=== PATIENT | female | born 1980 | race Two or more races ===

== ENCOUNTER 2025-03-28 17:18 | Emergency (ER) | payer MEDICAID, SELFPAY ==
[2025-03-28 17:31] VITALS: BP 157/94; PULSE 79; RESP 18; TEMP 36.9; O2SAT 97; BMI 36.6
--- NOTE | 2025-03-28 17:41 | XR_ITS ---
Examination: PA lateral chest 2 views Technique 1 upright PA and lateral chest 2 views Date and time: March 28, 2025 1743 hours INDICATIONS: Coughing beginning one week ago. FINDINGS: Normal heart size. Lungs are clear. Osseous structures are intact IMPRESSION: No active disease
--- NOTE | 2025-03-28 17:41 | XR_ITS ---
Examination: Shoulder,right, 3 views Technique: Shoulder AP internal rotation, AP external rotation, Y view shoulder, 3 views Exam date and time :March 28, 2025 1749 hours INDICATIONS: Right shoulder pain this month. FINDINGS: Mild to moderate narrowing glenohumeral joint No fracture or shoulder dislocation No calcific tendinitis IMPRESSION: [id number] osteoarthritis glenohumeral joint
--- NOTE | 2025-03-28 17:41 | PD.EDRME ---
Rapid Medical Screening Exam E Arrival date/time: 03/28/25 17:18 45-year-old female presents to the Emergency Department for complaints of right shoulder pain, cough, congestion patient reports has been on antibiotics without relief Chief Complaint: Flu Like Symptoms Time Seen by Provider: 03/28/25 17:32 Vital signs: Vital Signs Temperature 98.5 F 03/28/25 17:31 Pulse Rate 79 03/28/25 17:31 Respiratory Rate 18 03/28/25 17:31 Blood Pressure 157/94 H 03/28/25 17:31 Pulse Oximetry (%) 97 03/28/25 17:31 Oxygen Delivery Method Room Air 03/28/25 17:31
[2025-03-28 21:59] VITALS: BP 157/91; PULSE 81; RESP 17; TEMP 36.5; O2SAT 100
--- NOTE | 2025-03-29 02:30 | PD.EDBACK ---
ED Back Injury Pain RME/HPI General Chief Complaint: Flu Like Symptoms Stated Complaint: COUGH, SOB, PAIN UPPER BACK Time Seen by Provider: 03/28/25 17:32 Arrival date/time: 03/28/25 17:18 RME / HPI RME / HPI Narrative: 03/28/25 17:18 45-year-old female presents to the Emergency Department for complaints of right shoulder pain, cough, congestion patient reports has been on antibiotics without relief DR. ARIAS?S MAIN ED EVALUATION: 52-year-old female with history of Gall Bladder Disease and Type II DM presenting to the emergency department via private auto who is presenting for chief complaint of right upper back pain and cough with phlegm. Pain is worse with deep inhalation. Patient denies leg swelling, history of smoking, or any other associated symptoms or medical complaints. - PMH: Gall Bladder Disease, Type II DM - PSH: Section - Social history: Denies - Current medications: Reviewed PCP is Clarisse Camejo MD MD Complaint: back pain Location: thoracic spine Exacerbating factors: deep breaths/cough Treatments prior to arrival: other medications (Z-Shawn) Related Data Home Medications ?Medication ?Instructions ?Recorded ?Confirmed metformin 1,000 mg tablet 1,000 mg PO BID 08/07/19 11/09/19 vits [id number] fum 1 tab PO QDAY 08/07/19 11/09/19 27 mg iron-folic acid 800 mcg tablet ( Vitamin) insulin glargine 100 unit/mL 30 unit subcut HS 09/19/19 11/09/19 subcutaneous solution (Lantus U-100 Insulin) insulin regular human 100 unit/mL 10 unit subcut HS 09/19/19 11/09/19 injection solution (Humulin R Regular U-100 Insulin) Previous Rx's ?Medication ?Instructions ?Recorded ciprofloxacin HCl 500 mg tablet 500 mg PO BID #14 tabs 02/16/22 (Cipro) sulfamethoxazole 800 1 tab PO BID #20 tabs 03/13/24 mg-trimethoprim 160 mg tablet (Bactrim DS) Allergies Allergy/AdvReac Type Severity Reaction Status Date / Time Penicillins Allergy Severe SWELLING Verified 03/28/25 17:22 Review of Systems Review of Systems Systems Reviewed: All systems reviewed, normal except as documented Respiratory Respiratory: Reports cough (with phlegm) Musculoskeletal Musculoskeletal: Reports other (BLL swelling, Right upper back pain.) Past Medical History Past Medical History GASTROINTESTINAL: Positive Gastrointestinal Disorders and Gall Bladder Disease REPRODUCTIVE: Positive Previous Pregnancies ENDOCRINE: Positive Endocrine Disorders and Diabetes Mellitus Type 2 OTHER HISTORY: Positive Hospitalization Family History FAMILY HISTORY: Positive Family Cardiac Disorders Surgical History SURGICAL: Positive Section Social History SMOKING STATUS: Never smoker Course Quality Measures none Orders Category Date Time Status Bedside COVID-19 Antigen Test NOW Care 03/28/25 17:41 Completed Bedside Influenza A&B Antigen Test NOW Care 03/28/25 17:41 Completed XR chest 2V Stat Exams 03/28/25 17:41 Completed XR shoulder RT min 2V Stat Exams 03/28/25 17:41 Completed D-Dimer Stat Lab 03/29/25 02:45 Completed PT [Prothrombin Time with INR] Stat Lab 03/29/25 02:45 Completed PTT [Partial Thromboplastin Time] Stat Lab 03/29/25 02:45 Completed Albuterol/Ipratr Rt Brittny [Duoneb Rt Brittny] Med 03/29/25 02:32 Discontinued 3 ml INH X1 ONE Ketorolac Inj [Toradol Inj] Med 03/29/25 03:27 Discontinued 15 mg IM X1 ONE Vital Signs Vital signs: Vital Signs Temperature 98.5 F 03/28/25 17:31 Pulse Rate 79 03/28/25 17:31 Respiratory Rate 18 03/28/25 17:31 Blood Pressure 157/94 H 03/28/25 17:31 Pulse Oximetry (%) 97 03/28/25 17:31 Oxygen Delivery Method Room Air 03/28/25 17:31 Back Pain / Injury MDM Narrative MDM Narrative:: Scribe Attestation: 03/29/2025 Cheryl Saleem am scribing for and in the presence of Dr. Arias. Provider Notation: Although this document has been carefully reviewed, there may still be some phonetic and other typographical errors.? These errors are purely grammatical due to imperfections in the software program and should not be construed in any way to compromise the substance of the patient's medical care during this visit. 52-year-old female with history of Gall Bladder Disease and Type II DM presenting to the emergency department via private auto who is presenting for chief complaint of right upper back pain and cough with phlegm. ROS: Right upper back pain, cough with phlegm. Differential diagnoses include PE, PNA, Atypical chest pain. Patient data External records reviewed:: [facility] previous records (Reviewed prior ED records from 03/13/24. Patient was seen for Cellulitis of foot.) Clinical information provided by:: patient Social determinants that could affect healthcare access:: none Patient has the following chronic illnesses:: Gall Bladder Disease, Type II DM How is presenting disease/condition affected by chronic disease/condition?: uneffected by Evaluation data The following diagnostics were reviewed and interpreted by me:: lab results and radiology exam(s) Lab and/or radiology exams considered but not ordered:: None Interpretation Summary: RADIOLOGY Shoulder X-Ray: FINDINGS: Mild to moderate narrowing glenohumeral joint No fracture or shoulder dislocation No calcific tendinitis IMPRESSION: [id number] osteoarthritis glenohumeral joint Chest X-Ray: FINDINGS: Normal heart size. Lungs are clear. Osseous structures are intact IMPRESSION: No active disease LABS D-Dimer is unremarkable. Medications / Prescriptions Medications or Prescriptions considered but not ordered:: None Medication administrations:: Medication Administration History Discontinued Medications Albuterol/Ipratropium (Albuterol/Ipratropium (Duoneb) Rt Brittny 3 Ml Nebu) 3 ml INH X1 ONE Stop: 03/29/25 02:33 Last Admin: 03/29/25 02:45 Dose: 3 ml Documented By: GB Ketorolac Tromethamine (Ketorolac Inj 30 Mg/Ml Vial) 15 mg IM X1 ONE Stop: 03/29/25 03:28 Last Admin: 03/29/25 03:36 Dose: 15 mg Documented By: CVL See above if any Consultations Consultation(s) initiated? (list below): No Diagnosis Differential diagnosis back pain/injury: other (PE, PNA, Atypical chest pain) Most likely diagnosis given after review of the tests above:: Chronic cough Admission Indicated Admission indicated?: not indicated Explain why admission is indicated or not indicated:: Does not meet admission criteria Admission Request Was there a request for admission?: No Disposition Plan Disposition Plan: Discharge Discharge Attestation Discharge Attestation: The patient and all family members were given an opportunity to ask questions and understood the discharge instructions. Discharge instructions specifically effects, indications for sooner follow up or return to the emergency department, and the expected course of current diagnosis. Patient condition: Stable Discharge Plan Plan Patient Disposition: HOME (Self Care) Patient condition on transfer: Stable Prescriptions/Referrals Prescriptions/Med Rec: No Action metformin 1,000 mg Tablet 1,000 mg PO BID Vitamin 27 mg iron- 800 mcg Tablet 1 tab PO QDAY Humulin R Regular U-100 Insuln 100 unit/mL Solution 10 unit SUBCUT HS Lantus U-100 Insulin 100 unit/mL Solution 30 unit SUBCUT HS ciprofloxacin HCl [Cipro] 500 mg tablet 500 mg PO BID Qty: 14 0RF sulfamethoxazole-trimethoprim [Bactrim DS] 800-160 mg tablet 1 tab PO BID Qty: 20 0RF Referrals: Clarisse Camejo PA-C [Primary Care Provider] - In 1 week Problem List Clinical Impression: Chronic cough Patient/Caregiver Discharge Instructions Education Materials: ED Cough Chronic Uncertain Cause Adult Additional Instructions: DISCHARGE INSTRUCTIONS Even though you have been discharged from the Emergency Department, there are several things that you should do to ensure that you receive proper care: 1. DO READ your discharge instructions as these contain important information concerning your medical care. 2. If medication has been prescribed for your condition, fill the prescription as soon as possible and follow the directions on the medication. 3. RETURN AT ONCE TO THE EMERGENCY DEPARTMENT if you have any problems or concerns. These include but are not limited to fever, worsening pain(belly, chest, head, etc?), worsening shortness of breath, uncontrollable bleeding, inability to tolerate food and water, or any condition that makes you question your well-being. Also, if your symptoms do not improve in the next 12-24 hours, return to the ER or seek medical care immediately. 4. Be sure to follow up with your regular physician or specialist as instructed at discharge as this is the best way to ensure that you receive the very best of care. If you do not have a primary care physician, please contact a physician group and make an appointment. 5. Please visit [employer] for coupons regarding your prescriptions. It is a free service for you to use and can help reduce the cost of your medication. We would like to thank you for coming today and our hope is that we served you and your family well during your stay Print Language: Ghanaian Stand Alone Forms: [employer]aye Award Info., Patient Portal Info Letter
[2025-03-29] MEDS: ALBUTEROL/IPRATROPIUM (Duoneb) RT SOL 3 ML NEBU INH (02:45)
[2025-03-29 02:48] VITALS: PULSE 84; RESP 18; O2SAT 100
[2025-03-29 03:02] VITALS: BP 155/90; PULSE 89; RESP 18; TEMP 36.5; O2SAT 100
[2025-03-29 03:11] LABS: D-Dimer < 250 ng/mL (<600)
[2025-03-29 03:17] LABS: Partial Thromboplastin Time 28.6 Seconds (22.0-36.0); Prothrombin Time 10.5 Seconds (9.0-12.2)
[2025-03-29] MEDS: KETOROLAC INJ 30 MG/ML VIAL 15 MG IM (03:36)
[2025-03-29 04:30] VITALS: RESP 18
== END 2025-03-29 04:30 | disposition home or self-care (01) ==
PROVIDERS: Emergency Provider Emergency Medicine; PCP Physician Assistant
DX: R05.3 Chronic cough (principal); M25.511 Pain in right shoulder; E11.9 Type 2 diabetes mellitus without complications
CPT/HCPCS: 36415; 71046; 73030; 85379; 85610; 85730; 87400; 87811; 94640; 96372; 99283; A9270; J1885

== ENCOUNTER → 2025-04-30 | Outpatient (CLI) | payer MEDICAID, SELFPAY ==
--- NOTE | 2025-04-30 15:15 | XR_ITS ---
Examination: Screening digital mammography, bilateral Computer aided detection 3-D breast Tomosynthesis, bilateral Date and time of exam: April 30, 2025 1501 hours Compared to mammograms dating to October 19, 2022 Indication: Screening Technique: Nonmagnified MLO, CC views of the breasts to been obtained, reconstructed from 3-D Tomosynthesis images. R2 computer aided detection program utilized for evaluation of suspicious masses and/or abnormal calcifications. 3-D Tomosynthesis images obtained. Findings: The breasts are heterogeneously dense, which may obscure small masses Stable nodule inner upper left breast which now has a breast biopsy marker Impression: BI-RADS category II: Benign Findings. Recommend 1 year follow-up mammogram. Recommend repeat left breast sonography to document stability of 10:00 nodule described on left breast sonogram December 17, 2023
== END | disposition home or self-care (01) ==
LOC: CDIM 14:43
PROVIDERS: Referring Provider Physician Assistant; Visit Provider Physician Assistant
DX: Z12.31 Encounter for screening mammogram for malignant neoplasm of breast (principal); N63.22 Unspecified lump in the left breast, upper inner quadrant; R92.333 Mammographic heterogeneous density, bilateral breasts
CPT/HCPCS: 77063; 77067

== ENCOUNTER 2025-08-17 15:56 | Emergency (ER) | payer MEDICAID, SELFPAY ==
[2025-08-17 16:06] VITALS: BP 180/106; PULSE 116; RESP 36; O2SAT 100
[2025-08-17 16:10] VITALS: BMI 31.6
--- NOTE | 2025-08-17 16:16 | XR_ITS ---
Examination: CT brain head without contrast. 2-D sagittal coronal reconstructions Date and time of exam: August 17, 2025, 1655 hours INDICATIONS: Ground-level fall today with injury to the head, right scalp hematoma CTDI: vol (mGy): 51.5 DLP: (mGycm): 1088 Technique: Multiple CT axial sections of the brain have been obtained, 5 mm slice thickness. Contrast has not been administered. 2-D sagittal, coronal reconstructions have been obtained Low dose protocols were performed. One or more of the following dose reduction techniques were used; automated exposure control, adjustment of the mA and/or KV according to patient size, use of iterative reconstruction technique. Findings: No significant ventricular enlargement. Intra-axial or extra-axial hemorrhage density is not seen. No mass effect or midline shift Basal cisterns are not remarkable. Fourth ventricle is midline. Cranial vault intact. Right frontal scalp hematoma Impression: Negative for acute hemorrhage, mass effect or midline shift
--- NOTE | 2025-08-17 16:16 | XR_ITS ---
Examination: CT cervical spine without contrast 2-D sagittal reconstructions 2-D coronal reconstructions 3-D reconstructions. Exam date and time: August 17, 2025, 1658 hours INDICATIONS: Ground-level fall today with into the neck, neck pain CTDI:vol (mGy) 17.1 DLP: (mGycm) 393 Technique: Multiple 2 mm axial sections of the cervical spine have been obtained. The coronal and sagittal reconstructions have been obtained. 3-D reconstructions have been obtained. Low dose protocols were performed. One or more of the following dose reduction techniques were used; automated exposure control, adjustment of the mA and/or KV according to patient size, use of iterative reconstruction technique. Findings: Axial sections demonstrate intact base of the skull. C1 exhibit satisfactory relationship to the odontoid. No acute cervical vertebral body fracture seen. Alignment posterior spinous processes satisfactory. Impression: No acute cervical fracture.
--- NOTE | 2025-08-17 16:16 | XR_ITS ---
Examination: CT thoracic spine, without contrast. 2-D sagittal reconstructions. 2-D coronal reconstructions. 3-D reconstructions. Date and time of exam: August 17, 2025, 1703 hours INDICATIONS: Ground-level fall today with injury to the back, back pain CTDI: vol (mGy): 33.4 DLP: (mGycm): 1279 Technique: Multiple 1.25 mm axial sections of the thoracic spine without intravenous contrast have been obtained. 2-D sagittal and coronal reconstructions have been obtained. 3-D reconstructions have been obtained. Low dose protocols were performed. One or more of the following dose reduction techniques were used; automated exposure control, adjustment of the mA and/or KV according to patient size, use of iterative reconstruction technique. Findings: Moderate osteopenia. Satisfactory alignment thoracic vertebral bodies No thoracic vertebral body compression fracture Thoracic pedicles and laminae appear intact No focal soft tissue disc protrusion IMPRESSION: No acute thoracic fracture
--- NOTE | 2025-08-17 16:16 | XR_ITS ---
Examination: CT lumbar spine, without contrast. 2-D sagittal reconstructions. 2-D coronal reconstructions. 3-D reconstructions. Date and time of exam: August 17, 2025, 1560 hours INDICATIONS: Ground-level fall today with injury of the lower back, lower back pain CTDI: vol (mGy): 46.3 DLP: (mGycm): 1560 Technique: Multiple 1.25 mm axial sections of the lumbar spine without intravenous contrast have been obtained. 2-D sagittal and coronal reconstructions have been obtained. 3-D reconstructions have been obtained. Low dose protocols were performed. One or more of the following dose reduction techniques were used; automated exposure control, adjustment of the mA and/or KV according to patient size, use of iterative reconstruction technique. Findings: Moderate osteopenia. Satisfactory alignment lumbar vertebral bodies. No lumbar vertebral body compression fracture No spondylolisthesis. Lumbar pedicles, laminae, transverse and posterior spinous processes intact L5-S1 2 mm central lumbar disc bulge L4-L5 2 mm central lumbar disc bulge IMPRESSION: No acute lumbar fracture
--- NOTE | 2025-08-17 16:23 | PD.EDFALL ---
ED Fall Injury RME/HPI General Chief Complaint: Fall Stated Complaint: FALL, HIT HEAD R) FACE Time Seen by Provider: 08/17/25 16:07 Arrival date/time: 08/17/25 15:56 RME / HPI RME / HPI Narrative: 45 female patient with significant history of hypertension diabetes mellitus came in for evaluation regarding fall. Incident happened few minutes prior to ER visit, patient was cleaning a couch accidentally tripped and fell forward hitting her forehead on the couch hard part resulting to swelling contusions to the forehead. Patient also complained of neck pain, upper back pain and low back pain, severity moderate. She denies any LOC no nausea no vomiting however she told me that she complained of tingling sensation to bilateral upper extremity severity mild. Patient denies any motor weakness to bilateral upper and lower extremity. She is able to stand with help. Denies any hip pain. She is not taking any blood thinner. She denies any intake of blood thinner. Related Data Home Medications ?Medication ?Instructions ?Recorded ?Confirmed metformin 1,000 mg tablet 1,000 mg PO BID 08/07/19 11/09/19 vits no.124-ferrous fum 1 tab PO QDAY 08/07/19 11/09/19 27 mg iron-folic acid 800 mcg tablet ( Vitamin) insulin glargine 100 unit/mL 30 unit subcut HS 09/19/19 11/09/19 subcutaneous solution (Lantus U-100 Insulin) insulin regular human 100 unit/mL 10 unit subcut HS 09/19/19 11/09/19 injection solution (Humulin R Regular U-100 Insulin) Previous Rx's ?Medication ?Instructions ?Recorded ciprofloxacin HCl 500 mg tablet 500 mg PO BID #14 tabs 02/16/22 (Cipro) sulfamethoxazole 800 1 tab PO BID #20 tabs 03/13/24 mg-trimethoprim 160 mg tablet (Bactrim DS) cyclobenzaprine 10 mg tablet 10 mg PO TID PRN muscle spasm #30 08/17/25 tabs ibuprofen 800 mg tablet 800 mg PO Q8H PRN pain #30 tabs 08/17/25 Allergies Allergy/AdvReac Type Severity Reaction Status Date / Time Penicillins Allergy Severe SWELLING Verified 08/17/25 15:58 Review of Systems Review of Systems Narrative Review of Systems: Review of system reviewed and within normal limits except mentioned in HPI ED Exam Narrative Physical exam: VITAL SIGNS: Reviewed. GENERAL APPEARANCE: Alert and interactive, follows commands, no acute distress, HEAD AND FACE: 1 x 1 cm contusion hematoma forehead ENT: PERRL, pink conjunctivitis, eyelid no trauma, Mucous membrane moist. NECK: Supple, posterior neck tenderness, no nuchal rigidity. CHEST: No tenderness, no crepitus, no paradoxical movement, no retractions. LUNGS: Clear, well ventilated, symmetric, no rales, no wheezing, no ronchi, no stridor, good breath sounds bilaterally. HEART: Regular rate, regular rhythm, no murmur, no gallops. ABDOMEN: Soft, positive bowel sounds, nondistended, no guarding, nontender, no rebound, no masses, RECTAL: Deferred. GENITAL: Deferred. NEUROLOGICAL: Gross motor function intact sensory function intact, Appropriate for age. MUSCULOSKELETAL: low back tenderness, mid back tenderness,, full range of motion. EXTREMITIES: Nontender, full range of motion. SKIN: Color pink, dry, no rash, no lacerations, no abrasions, no contusions. LYMPHATICS: Deferred. Course Quality Measures none Orders Category Date Time Status Insert IV NOW Care 08/17/25 17:[address] cervical spine wo con Stat Exams 08/17/25 16:[address] head/brain wo con Stat Exams 08/17/25 16:[address] lumbar spine wo con Stat Exams 08/17/25 16:[address] thoracic spine wo con Stat Exams 08/17/25 16:16 Completed CBC [CBC] Stat Lab 08/17/25 16:15 Completed CMP [Comprehensive Metabolic Panel] Stat Lab 08/17/25 16:15 Completed HCG Qualitative,Urine Stat Lab 08/17/25 16:22 Ordered PTT [Partial Thromboplastin Time] Stat Lab 08/17/25 16:15 Completed UA, C/S IF [Urinalysis, C/S if Indicated] Stat Lab 08/17/25 16:22 Ordered HYDROcodone*/APAP 5/325 [[place] 5/325] Med 08/17/25 19:16 Discontinued 1 tab PO X1 ONE Morphine* Inj Med 08/17/25 16:23 Discontinued 4 mg IVP X1 ONE Ondansetron Inj [Zofran Inj] Med 08/17/25 16:22 Discontinued 4 mg IVP X1 ONE Vital Signs Vital signs: Vital Signs Pulse Rate 116 H 08/17/25 16:06 Respiratory Rate 36 H 08/17/25 16:06 Blood Pressure 180/106 H 08/17/25 16:06 Pulse Oximetry (%) 100 08/17/25 16:06 Oxygen Delivery Method Room Air 08/17/25 16:06 Fall MDM Narrative MDM Narrative:: 45 female patient with significant history of hypertension diabetes mellitus came in for evaluation regarding fall. Incident happened few minutes prior to ER visit, patient was cleaning a couch accidentally tripped and fell forward hitting her forehead on the couch hard part resulting to swelling contusions to the forehead. Patient also complained of neck pain, upper back pain and low back pain, severity moderate. She denies any LOC no nausea no vomiting however she told me that she complained of tingling sensation to bilateral upper extremity severity mild. Patient denies any motor weakness to bilateral upper and lower extremity. She is able to stand with help. Denies any hip pain. She is not taking any blood thinner. She denies any intake of blood thinner. CT scan of the head came back unremarkable. CT scan of the neck came back unremarkable CT scan of the lumbar spine came back unremarkable. CT scan of the thoracic spine came back unremarkable. Results discussed with the patient. Patient stable for discharge home. Patient data External records reviewed:: None Clinical information provided by:: patient Social determinants that could affect healthcare access:: none Patient has the following chronic illnesses:: Diabetes hypertension How is presenting disease/condition affected by chronic disease/condition?: uneffected by Evaluation data The following diagnostics were reviewed and interpreted by me:: lab results and radiology exam(s) Lab and/or radiology exams considered but not ordered:: None Interpretation Summary: See results [facility] Medications / Prescriptions Medications or Prescriptions considered but not ordered:: None Medication administrations:: Medication Administration History Discontinued Medications Hydrocodone Bitart/Acetaminophen (Hydrocodone/Apap 5/325 Tablet) 1 tab PO X1 ONE Stop: 08/17/25 19:17 Morphine Sulfate (Morphine Sulf Inj 4 Mg/Ml Vial) 4 mg IVP X1 ONE Stop: 08/17/25 16:24 Last Admin: 08/17/25 16:27 Dose: 4 mg Documented By: REAL Ondansetron HCl (Ondansetron Inj 2 Mg/Ml Inj 2 Ml) 4 mg IVP X1 ONE; Protocol Stop: 08/17/25 16:23 Last Admin: 08/17/25 16:27 Dose: 4 mg Documented By: REAL [place] morphine and Zofran Consultations Consultation(s) initiated? (list below): No Diagnosis Fall Differential Diagnosis: syncope, compression fracture and other (Forehead contusion, neck pain, acute whiplash injury, thoracic pain, fall) Most likely diagnosis given after review of the tests above:: Fall, foot contusion, acute whiplash injury, back pain Admission Indicated Admission indicated?: not indicated Explain why admission is indicated or not indicated:: None Admission Request Was there a request for admission?: No Disposition Plan Disposition Plan: Discharge Discharge Attestation Discharge Attestation: The patient and all family members were given an opportunity to ask questions and understood the discharge instructions. Discharge instructions specifically effects, indications for sooner follow up or return to the emergency department, and the expected course of current diagnosis. Patient condition: Stable Discharge Plan Plan Patient Disposition: HOME (Self Care) Discharge Disposition comment: Stable Prescriptions/Referrals Prescriptions/Med Rec: New ibuprofen 800 mg tablet 800 mg PO Q8H PRN (Reason: pain) Qty: 30 0RF cyclobenzaprine 10 mg tablet 10 mg PO TID PRN (Reason: muscle spasm) Qty: 30 0RF No Action metformin 1,000 mg Tablet 1,000 mg PO BID Vitamin 27 mg iron- 800 mcg Tablet 1 tab PO QDAY Humulin R Regular U-100 Insuln 100 unit/mL Solution 10 unit SUBCUT HS Lantus U-100 Insulin 100 unit/mL Solution 30 unit SUBCUT HS ciprofloxacin HCl [Cipro] 500 mg tablet 500 mg PO BID Qty: 14 0RF sulfamethoxazole-trimethoprim [Bactrim DS] 800-160 mg tablet 1 tab PO BID Qty: 20 0RF Referrals: Clarisse Camejo PA-C [Primary Care Provider, Family Practice] - In 1 week Problem List Clinical Impression: Fall, Whiplash injury, acute, Back pain, Contusion of forehead Patient/Caregiver Discharge Instructions Discharge Activity: activity as tolerated Education Materials: Bruises (Contusions) Additional Instructions: Thank you for the opportunity for serving you today. You are stable for discharged . You are advised to: Follow-up with your PCP in 1 to 2 days Return to ED for worsening of symptoms Increase oral fluids Take medication as prescribed Print Language: Guamanian Stand Alone Forms: Naye Award Info., Patient Portal Info Letter PA/AB INITIO ETL DEVELOPER Supervising Physician PA/AB INITIO ETL DEVELOPER Supervising Physician: MD [place]
[2025-08-17] MEDS: ONDANSETRON INJ 2 MG/ML INJ 2 ML 4 MG IVP (16:27)
[2025-08-17] MEDS: MORPHINE SULF INJ 4 MG/ML VIAL IVP (16:27)
[2025-08-17 16:41] LABS: Basophils # (Auto) 0.1 Thou/mm3 (0.0-0.2); Basophils % (Auto) 1 % (0-2.5); Eosinophils # (Auto) 0.1 Thou/mm3 (0.0-0.5); Eosinophils % (Auto) 1 % (0-10); Hematocrit 37.6 % (36.0-46.0); Hemoglobin 13.0 g/dL (12.0-16.0); Immature Granulocytes Auto 0.06 Thou/mm3 (0.00-0.00); Lymphocytes # (Auto) 4.6 Thou/mm3 (1.0-4.8); Lymphocytes % (Auto) 42 % (10-50); Mean Corpuscular HGB Conc 34.6 g/dl (31.0-37.0); Mean Corpuscular Hemoglobin 28.3 pg (25.0-35.0); Mean Corpuscular Volume 82 fL (80-100); Monocytes # (Auto) 0.7 Thou/mm3 (0.0-0.8); Monocytes % (Auto) 6 % (0-12); Neutrophils # (Auto) 5.5 Thou/mm3 (1.8-7.7); Neutrophils % (Auto) 50 % (37-80); Nucleated Red Blood Cell # 0.00 Thou/mm3 (0.00-0.00); Nucleated Red Blood Cell % 0 /100 WBC (0); Platelet Count 326 Thou/mm3 (140-440); RDW Standard Deviation 38.0 fL (36.4-46.3); Red Blood Count 4.60 Miln/mm3 (4.00-5.20); White Blood Count 11.0 Thou/mm3 (3.6-11.0)
[2025-08-17 16:55] LABS: Partial Thromboplastin Time 28.7 Seconds (22.0-36.0)
[2025-08-17 17:01] LABS: Alanine Aminotransferase 16 U/L (10-49); Albumin, Serum 4.5 gm/dL (3.5-5.0); Albumin/Globulin Ratio 1.6 (1.2-2.2); Alkaline Phosphatase 93 U/L (46-116); Anion Gap 15 (7-16); Aspartate Amino Transferase 15 U/L (0-34); BUN/Creatinine Ratio 22 Ratio (12-20); Bilirubin,Total 0.3 mg/dL (0.3-1.2); Blood Urea Nitrogen 26 mg/dL (9-23); Calcium 9.4 mg/dL (8.3-10.6); Calcium (Corrected) 9.4 mg/dL (8.5-10.1); Carbon Dioxide 18.8 mMol/L (20.0-31.0); Chloride 104 mMol/L (98-107); Creatinine (Component) 1.2 mg/dL (0.6-1.3); Estimated Creatinine Clearance 68.1 mL/min (>60); Globulin 2.8 gm/dL (2.3-3.5); Glucose 241 mg/dL (74-106); Osmolality,Calculated 288 (275-295); Potassium 4.7 mMol/L (3.4-5.1); Sodium 138 mMol/L (136-145); Total Protein 7.3 gm/dL (5.7-8.2); eGFR 57 See Note
[2025-08-17 18:00] VITALS: BP 171/104; PULSE 92; RESP 18; TEMP 37.2; O2SAT 95
[2025-08-17] MEDS: HYDROcodone/APAP 5/325 TABLET 1 TAB PO (19:30)
[2025-08-17 19:31] VITALS: BP 177/97; PULSE 92; RESP 14; TEMP 37; O2SAT 99
== END 2025-08-17 19:38 | disposition home or self-care (01) ==
PROVIDERS: Emergency Provider Nurse Practitioner Family; PCP Physician Assistant
DX: S00.83XA Contusion of other part of head, initial encounter (principal); S13.4XXA Sprain of ligaments of cervical spine, initial encounter; W01.198A Fall on same level from slipping, tripping and stumbling with subsequent striking against other object, initial encounter; E11.9 Type 2 diabetes mellitus without complications; I10 Essential (primary) hypertension; Z79.84 Long term (current) use of oral hypoglycemic drugs
CPT/HCPCS: 36415; 70450; 72125; 72128; 72131; 80053; 81001; 81025; 85025; 85730; 99284; J2270; J2405; A9270